=== PATIENT | female | born 1960 | race Caucasian/White ===

== ENCOUNTER 2021-03-23 07:04 | Day surgery (SDC) | payer OTHER ==
[2021-03-21 14:19] LABS: COVID AG,FIA SOURCE NASOPHARYNGEAL
[~2021-03-23] VITALS: Ht 167.6 cm; Wt 75.0 kg
[~2021-03-23 07:04] MED LIST: SODIUM CHLORIDE 0.9% 1,000 ML IV ONE
[2021-03-23] MEDS ORDERED: SODIUM CHLORIDE 0.9% 1,000 ML ONE (07:18)
[2021-03-23 08:19] LABS: BASOPHILS % (AUTO) 0.9 % (0.0-2.0); EOSINOPHILS % (AUTO) 3.3 % (1.0-6.0); HEMATOCRIT 37.1 % (36-46); HEMOGLOBIN 12.1 g/dL (12.0-16.0); LYMPHOCYTES # (AUTO) 1.9 K/uL (1.0-4.8); MEAN CORPUSCULAR HEMOGLOBIN 29.2 pg (26.0-34.0); MEAN CORPUSCULAR HGB CONC 32.7 G/dL (31.0-37.0); MEAN CORPUSCULAR VOLUME 89 fL (80-100); MONOCYTES # (AUTO) 0.6 K/uL (0.1-1.0); MONOCYTES % (AUTO) 11.3 % (2.0-9.0); NEUTROPHILS # (AUTO) 2.4 K/uL (1.8-7.7); NEUTROPHILS % (AUTO) 47.5 % (40.0-70.0); PLATELET COUNT (AUTO) 235 K/uL (150-450); RED BLOOD CELL COUNT(AUTO) 4.16 MIL/uL (4.00-5.20); RED CELL DISTRIBUTION WIDTH 14.5 % (11.5-14.5)
[2021-03-23 08:28] LABS: ANION GAP 7 mmol/L (8-16); CALCIUM, TOTAL 8.4 mg/dL (8.8-10.5); CARBON DIOXIDE 26 mmol/L (22-29); CHLORIDE 106 mmol/L (98-107); CREATININE 0.73 mg/dL (0.60-1.30); GLOMERULAR FILTR. RATE CALC > 60 mL/min (>60); GLUCOSE,RANDOM 102 mg/dL (70-110); SODIUM SERUM 139 mmol/L (136-145); UREA NITROGEN, BLOOD 18 mg/dL (7-18)
[2021-03-23 08:33] LABS: ALANINE AMINOTRANSFERASE 29 U/L (12-78); ALBUMIN 3.3 g/dL (3.4-5.0); ALKALINE PHOSPHATASE 95 U/L (46-116); ASPARTATE AMINOTRANSFERASE 18 U/L (15-37); BILIRUBIN,TOTAL 0.9 mg/dL (0.1-1.0); TOTAL PROTEIN, SERUM 6.9 g/dL (6.4-8.2)
[2021-03-23 08:42] LABS: PROTHROMBIN TIME 10.8 SEC (9.4-11.6)
== END 2021-03-23 08:50 | disposition home or self-care (01) ==
LOC: CATHLAB 07:04
PROVIDERS: ATTEND Internal Medicine Interventional Cardiology
DX: R55 Syncope and collapse (principal); Z53.8 Procedure and treatment not carried out for other reasons; Q21.1 Atrial septal defect; I10 Essential (primary) hypertension; I25.2 Old myocardial infarction; J45.909 Unspecified asthma, uncomplicated; H40.9 Unspecified glaucoma; Z79.899 Other long term (current) drug therapy; Z20.822 Contact with and (suspected) exposure to COVID-19
CPT/HCPCS: 36415; 80053; 85025; 85610; 85730; 87426; 93005; C9803; J7030

== ENCOUNTER 2021-12-07 06:29 | Day surgery (SDC) | payer OTHER ==
[2021-12-05 08:41] LABS: COVID AG,FIA SOURCE NASOPHARYNGEAL
[~2021-12-07] VITALS: Ht 167.6 cm; Wt 87.0 kg
[2021-12-07] MEDS ORDERED: BENZOCAINE 20% 50 MCG/SPRAY 57 GM TP ONE (06:30)
[2021-12-07] MEDS ORDERED: LIDOCAINE 4% 50 ML SOLUTION TP ONE (06:30)
[2021-12-07] MEDS ORDERED: ALBUTEROL SULFATE 2.5 MG/0.5 ML NEB SOLUTION NEB ONE (06:30)
[2021-12-07] MEDS ORDERED: LIDOCAINE 2% 30 ML JELLY TP ONE (06:30)
[2021-12-07] MEDS ORDERED: SODIUM CHLORIDE 0.9% 1,000 ML IV ONE (07:00)
[2021-12-07] MEDS ORDERED: MIDAZOLAM HCL 5 MG/ML VIAL ONE (07:36)
[2021-12-07] MEDS ORDERED: FentaNYL CITRATE PF 100 MCG/2 ML VIAL ONE (07:36)
[2021-12-07] MEDS ORDERED: CLOP75TA14 PO (08:12)
[2021-12-07] MEDS ORDERED: AMLO2.5T29 PO (08:14)
[2021-12-07] MEDS ORDERED: MONT-35 PO (08:16)
[2021-12-07] MEDS ORDERED: ATOR10TA69 PO (08:17)
[2021-12-07] MEDS ORDERED: METO-558 PO (08:19)
[2021-12-07] MEDS ORDERED: MethylPREDNISolone SOD SUCC 125 MG/2 ML VIAL IVP ONE (09:00)
[2021-12-07] MEDS ORDERED: MethylPREDNISolone SOD SUCC 125 MG/2 ML VIAL ONE (09:06)
== END 2021-12-07 10:50 | disposition home or self-care (01) ==
LOC: SURGERY 06:29
PROVIDERS: ATTEND Internal Medicine Critical Care Medicine
DX: J38.4 Edema of larynx (principal); B37.0 Candidal stomatitis; Z79.899 Other long term (current) drug therapy; Z98.890 Other specified postprocedural states
CPT/HCPCS: 31623; 31624; 71045; 87015; 87070; 87101; 87206; 87220; 87426; 88112; 88184; 88185; 88305; 88312; C9803; J2250; J2930; J3010; J7613; Z7610

== ENCOUNTER 2021-12-28 07:59 | Day surgery (SDC) | payer OTHER ==
[2021-12-27 13:34] LABS: COVID AG,FIA SOURCE NASOPHARYNGEAL
[~2021-12-28] VITALS: Ht 167.6 cm; Wt 88.6 kg
[~2021-12-28 07:59] MED LIST changes: +AMLO2.5T29 PO; +ATOR20TA86 PO; +CLOP75TA14 PO; +METO-558 PO; +MONT-35 PO; +SODIUM CHLORIDE 0.9% 1,000 ML ONE
[2021-12-28] MEDS ORDERED: PROPOFOL 1% 20 ML VIAL IVP ONE (08:00)
[2021-12-28 11:37] LABS: GLUCOMETER DEV NAME(LOC) SDS.; GLUCOSE,POINT OF CARE 100 MG/DL (70-110)
== END 2021-12-28 12:20 | disposition home or self-care (01) ==
LOC: SURGERY 07:59
PROVIDERS: ATTEND Internal Medicine Gastroenterology
DX: K59.09 Other constipation (principal); K62.1 Rectal polyp; K64.0 First degree hemorrhoids; K21.9 Gastro-esophageal reflux disease without esophagitis; I10 Essential (primary) hypertension; J45.909 Unspecified asthma, uncomplicated; I25.2 Old myocardial infarction; E78.00 Pure hypercholesterolemia, unspecified; M19.90 Unspecified osteoarthritis, unspecified site; Z98.51 Tubal ligation status; Z98.890 Other specified postprocedural states; Z79.899 Other long term (current) drug therapy; Z88.8 Allergy status to other drugs, medicaments and biological substances
CPT/HCPCS: 45380; 82962; 87426; 88305; C9803; J2704; J7030

== ENCOUNTER 2022-11-15 06:53 | Day surgery (SDC) | payer OTHER ==
[~2022-11-15] VITALS: Ht 167.6 cm; Wt 84.1 kg
[~2022-11-15 06:53] MED LIST changes: +CLOP-31 PO; -CLOP75TA14 PO; -SODIUM CHLORIDE 0.9% 1,000 ML IV ONE; -SODIUM CHLORIDE 0.9% 1,000 ML ONE
[2022-11-15] MEDS ORDERED: LIDOCAINE 4% 50 ML SOLUTION TP ONE (06:54)
[2022-11-15] MEDS ORDERED: LIDOCAINE 2% 11 ML JELLY TP ONE (06:54)
[2022-11-15] MEDS ORDERED: ALBUTEROL SULFATE 2.5 MG/0.5 ML NEB SOLUTION NEB ONE (06:54)
[2022-11-15] MEDS ORDERED: BENZOCAINE 20% 50 MCG/SPRAY 57 GM TP ONE (06:54)
[2022-11-15] MEDS ORDERED: SODIUM CHLORIDE 0.9% 1,000 ML IV ONE (07:00)
[2022-11-15] MEDS ORDERED: SODIUM CHLORIDE 0.9% 1,000 ML ONE ×2 (07:28→07:37)
[2022-11-15] MEDS ORDERED: IPRA4AER IH (07:59)
[2022-11-15] MEDS ORDERED: CHOL25TA4 PO (07:59)
[2022-11-15] MEDS ORDERED: LORA10TA7 PO (07:59)
[2022-11-15] MEDS ORDERED: LUBI24CA2 PO (07:59)
[2022-11-15] MEDS ORDERED: FAMO20 PO (07:59)
[2022-11-15] MEDS ORDERED: ALBU18HF12 IH (08:00)
[2022-11-15] MEDS ORDERED: FentaNYL CITRATE PF 100 MCG/2 ML VIAL ONE (08:08)
[2022-11-15] MEDS ORDERED: MIDAZOLAM HCL 2 MG/2 ML VIAL ONE (08:08)
[2022-11-15] MEDS ORDERED: MethylPREDNISolone SOD SUCC 125 MG/2 ML VIAL ONE (09:23)
[2022-11-15] MEDS ORDERED: MethylPREDNISolone SOD SUCC 125 MG/2 ML VIAL IVP ONE (09:30)
== END 2022-11-15 11:35 | disposition home or self-care (01) ==
LOC: SURGERY 06:53
PROVIDERS: ATTEND Internal Medicine Critical Care Medicine
DX: R05.3 Chronic cough (principal); R91.1 Solitary pulmonary nodule; J98.09 Other diseases of bronchus, not elsewhere classified; J98.8 Other specified respiratory disorders; Z86.73 Personal history of transient ischemic attack (TIA), and cerebral infarction without residual deficits; Z79.899 Other long term (current) drug therapy; Z98.890 Other specified postprocedural states
CPT/HCPCS: 31623; 88112; 87206; 87101; 87220; 87070; 31624; 94640; 71045; 87015; J3010; J2250; J2930; Q9967; J7030; J7613; Z7610